=== PATIENT | male | born 1950 | race Hispanic/Latino ===

== ENCOUNTER 2017-01-24 08:48 | Day surgery (SDC) | payer MEDICARE ==
--- NOTE | 2017-01-24 10:02 | Anesthesia Consultation ---
Anesthesia Consult and Med Hx Date of service: 01/24/17 - Airway Anesthetic Teeth Evaluation: Good, Crowns ROM Head & Neck: Adequate Mental/Hyoid Distance: Adequate Mallampati Class: Class III Intubation Access Assessment: Possibly Difficult - Pre-Operative Health Status ASA Pre-Surgery Classification: ASA2 - Pulmonary Hx Smoking: Yes (STOPPED , 1 PPD X 30 YRS) Hx Pneumonia: Yes (06/2016 , RESOLVED) Hx Sleep Apnea: No (RAISA PRE SCREEN HIGH RISK) - Cardiovascular System Hx Hypertension: No (BP on admission 172/104) - Endocrine Hx Non-Insulin Dependent Diabetes: Yes - Other Systems Hx Cancer: No
--- NOTE | 2017-01-24 10:03 | Anesthesia Day of Surgery ---
Anesthesia Day of Surgery - Day of Surgery Patient Examined: Yes Patient H&P Reviewed: Yes Patient is NPO: Yes
[2017-01-24] MEDS ORDERED: DIPRIVAN 10 MG/ML IV ONE (10:57)
[2017-01-24] MEDS ORDERED: XYLOCAINE MPF 2% ONE (10:57)
[2017-01-24] MEDS ORDERED: DILAUDID ONE (10:57)
[2017-01-24] MEDS ORDERED: VERSED IV NR (11:00)
[2017-01-24] MEDS ORDERED: PEPCID IV NR (11:00)
[2017-01-24] MEDS ORDERED: NACL 0.9% 1000 ML 1,000 ML IV SCH (11:00)
[2017-01-24] MEDS ORDERED: ANCEF/STERILE WATER 2 GM/20 ML IV NR (12:00)
[2017-01-24] MEDS ORDERED: OMNIPAQUE 300 MG/50 ML (CATH LAB) IV ONE (12:01)
[2017-01-24] MEDS ORDERED: WATER FOR IRRIG STERILE IR ONE ×2 (12:02)
[2017-01-24] MEDS ORDERED: DECADRON ONE (12:02)
[2017-01-24] MEDS ORDERED: ZOFRAN ONE (12:02)
[2017-01-24] MEDS ORDERED: XYLOCAINE 2% UROJET ONE (12:24)
[2017-01-24] MEDS ORDERED: PROAIR IH ONE (12:31)
[2017-01-24] MEDS ORDERED: LASIX ONE (12:32)
[2017-01-24] MEDS ORDERED: PROVENTIL IH ONE (12:51)
--- NOTE | 2017-01-24 13:01 | Post Operative Note ---
Date of procedure: 01/24/17 Pre-op diagnosis: huge R distal stone Post-op diagnosis: same Findings: as above severe R hydro Procedure: cysto rpgs stone transpostion j randall Anesthesia: GETA Surgeon: KANE AGUILAR Estimated blood loss: none Pathology: none Condition: stable Disposition: PACU
--- NOTE | 2017-01-24 13:03 | Discharge Summary ---
Short Stay Discharge Plan Activity: other (no straining ) Weight Bearing Status: Full Weight Bearing Diet: regular, low fat, low salt Special Instructions: other (inc fluids ) Durable Medical Equipment Needed Upon Discharge: other (home with patterson and stent ) Follow up with: EMERITA SPRING MD [Primary Care Provider] - 7 Days KANE AGUILAR MD [Staff Physician] - 3 Days Forms: Outpatient Surgery DC Inst.
[2017-01-24] MEDS: DILAUDID IV PRN ×2 (13:08→13:20)
--- NOTE | 2017-01-24 13:35 | Operative Report ---
PREOPERATIVE DIAGNOSES: Large 1 cm distal right ureteral stone with severe hydronephrosis, azotemia. POSTOPERATIVE DIAGNOSES: Large 1 cm distal right ureteral stone with severe hydronephrosis, azotemia. PROCEDURE: Cystoscopy, retrograde, right ureteral stone transposition, double-J stent. SURGEON: Jarett Preston MD ANESTHESIA: General. FINDINGS: This is a gentleman with no pain, but has a large distal right ureteral stone with severe hydronephrosis and azotemia. All the options were discussed. He may need a percutaneous nephrostomy. He now presents for treatment. DESCRIPTION OF PROCEDURE: The patient was brought to the operating room and placed on the operating table. Following the induction of general anesthesia, placed in lithotomy position, prepped and draped in usual sterile fashion. Cystourethroscopy showed an elevated bladder neck and enlarged prostate. Once we got in the bladder, retrograde showed a large stone in the distal ureter just at the pelvic brim. The right side was unremarkable. Using an open-ended catheter and some Xylocaine gel diluted, we were able to manipulate the stone up into the kidney, it took some time and under fluoroscopic guidance. At this point, he had moderate hydronephrosis. His creatinine is 3. We placed a 7-[place] 28 cm J stent as 26 was not available, coiled in the bladder and kidney. A Wilson was placed. We thinking of doing a lithotripsy, but with creatinine and possible mild inflammatory changes, we decided to not do lithotripsy, he is going to need multiple procedures in a staged fashion, which will include follow up lithotripsy, laser, or even possible percutaneous nephrostomy. We will let the kidney decompress and follow up in a staged procedure as discussed with him and his preoperatively and his postoperatively. He was brought to recovery in stable condition. JOB# [id number] [facility]
[2017-01-24 15:52] VITALS: BP 136/91
--- NOTE | 2017-01-25 09:36 | Fluoroscopy Report ---
Retrograde pyelogram: Right ureteral calculus. The initial images demonstrates an opacity over the right SI joint. Injection of contrast demonstrates obstruction to the ureter consistent with the opacification at the mid SI joint. Additional imaging demonstrates ureteral and renal dilatation above this location. On the final image it would appear that the calculus has been dislodged and there is a right nephroureteral stent present.
== END 2017-01-24 14:46 | disposition home or self-care (01) ==
LOC: OR 08:48
PROVIDERS: ATTEND Urology
DX: N13.2 Hydronephrosis with renal and ureteral calculous obstruction (principal); R79.89 Other specified abnormal findings of blood chemistry; E11.9 Type 2 diabetes mellitus without complications; Z79.899 Other long term (current) drug therapy; Z88.6 Allergy status to analgesic agent; Z87.891 Personal history of nicotine dependence; Z98.890 Other specified postprocedural states
CPT/HCPCS: 52330; 74420 ×2; 82962 ×2; A4217; C1758; C1769; C2617; J0690; J1100; J1170; J1940; J2250; J2405; J2704; J7030; Q9967

== ENCOUNTER 2017-02-14 10:53 | Day surgery (SDC) | payer MEDICARE ==
[~2017-02-14 10:53] MED LIST: ANCEF/STERILE WATER 2 GM/20 ML 2 GM/20 ML SYRINGE IV NR
--- NOTE | 2017-02-14 12:20 | Anesthesia Day of Surgery ---
Anesthesia Day of Surgery - Day of Surgery Patient Examined: Yes Patient H&P Reviewed: Yes Patient is NPO: Yes
--- NOTE | 2017-02-14 12:20 | Anesthesia Consultation ---
Anesthesia Consult and Med Hx Date of service: 02/14/17 - Airway Anesthetic Teeth Evaluation: Good ROM Head & Neck: Adequate Mental/Hyoid Distance: Adequate Mallampati Class: Class III Intubation Access Assessment: Possibly Difficult - Pre-Operative Health Status ASA Pre-Surgery Classification: ASA2 - Pulmonary Hx Smoking: Yes (STOPPED 2014 , 1 PPD X 30 YRS) Hx Pneumonia: Yes (06/2016 , RESOLVED) Hx Sleep Apnea: No (RAISA PRE SCREEN HIGH RISK) - Cardiovascular System Hx Hypertension: No (RECENT HBP- NOT DX YET) - Endocrine Hx Renal Disease: Yes (kidney stones) Hx Non-Insulin Dependent Diabetes: Yes - Other Systems Hx Cancer: No Hx Obesity: Yes (BMI 32.5)
[2017-02-14] MEDS ORDERED: NACL 0.9% 1000 ML 1,000 ML IV SCH (13:00)
[2017-02-14] MEDS ORDERED: PEPCID IV NR (13:00)
[2017-02-14] MEDS ORDERED: VERSED IV NR (13:00)
[2017-02-14] MEDS ORDERED: SUBLIMAZE ONE (14:21)
[2017-02-14] MEDS ORDERED: DIPRIVAN 10 MG/ML IV ONE (14:22)
[2017-02-14] MEDS ORDERED: XYLOCAINE MPF 2% ONE (14:23)
--- NOTE | 2017-02-14 14:48 | Post Operative Note ---
Date of procedure: 02/14/17 Pre-op diagnosis: r ureteral stone Post-op diagnosis: same Findings: as above Procedure: r eswl Anesthesia: GREGORY Surgeon: KANE AGUILAR Estimated blood loss: none Pathology: none Condition: stable Disposition: PACU
--- NOTE | 2017-02-14 14:49 | Discharge Summary ---
Short Stay Discharge Plan Activity: other (no straining ) Weight Bearing Status: Full Weight Bearing Diet: low fat, low cholesterol, low salt Special Instructions: other (inc fluids ) Follow up with: EMERITA SPRING MD [Primary Care Provider] - 7 Days KANE AGUILAR MD [Staff Physician] - 7 Days
--- NOTE | 2017-02-14 15:06 | Operative Report ---
PREOPERATIVE DIAGNOSIS: Large ureteral stone that was pushed up into his kidney on the right side. POSTOPERATIVE DIAGNOSES: Large ureteral stone that was pushed up into his kidney on the right side. PROCEDURE: Right ESWL. SURGEON: Jarett Preston M.D. ANESTHESIA: General. FINDINGS: This is a gentleman who presented with severe pain, large stone was in his ureter pushed up in the kidney around the loop of the double-J, now presents for lithotripsy. DESCRIPTION OF PROCEDURE: The patient brought to the operating room and placed on the operating table. Following induction of anesthesia, placed in supine position. Stone was well localized within the double-J stent. Shocks were begun at 1 kV and a renal pause was carried out and increased to maximum of 6 kV. A total of 2500 shocks were given. The patient tolerated the procedure well. No significant complication. The stone appeared to be spread out. He will need a staged procedure, likely will need ureteroscopy or may even need a percutaneous nephrostomy or second lithotripsy, brought to recovery in stable condition. JOB# [id number] [facility]
--- NOTE | 2017-02-14 15:08 | Post Anesthesia Evaluation ---
- Post Anesthesia Evaluation Patient Participated: Yes Airway Patent: Yes Stable Respiratory Function: Yes Nausea/Vomiting: No Temp > 96.8F: Yes Pain Manageable: Yes Adequeate Hydration: Yes Anesthesia Complications: No
[2017-02-14 15:49] VITALS: BP 142/81
[2017-02-14] MEDS ORDERED: PERCOCET 5/325 PO PRN (16:00)
== END 2017-02-14 10:54 | disposition home or self-care (01) ==
LOC: OR 10:53
PROVIDERS: ATTEND Urology
DX: N20.0 Calculus of kidney (principal); I10 Essential (primary) hypertension; E11.9 Type 2 diabetes mellitus without complications; E66.9 Obesity, unspecified; Z68.32 Body mass index [BMI] 32.0-32.9, adult; Z98.890 Other specified postprocedural states; Z88.6 Allergy status to analgesic agent; Z79.84 Long term (current) use of oral hypoglycemic drugs; Z87.891 Personal history of nicotine dependence; Z79.899 Other long term (current) drug therapy
CPT/HCPCS: 50590; 82962; J0690; J2250; J2704; J3010; J7030

== ENCOUNTER 2017-03-14 07:59 | Day surgery (SDC) | payer MEDICARE ==
[2017-03-14] MEDS ORDERED: NACL BACTERIOSTATIC INFILTRATI ONE (09:01)
[2017-03-14] MEDS ORDERED: DILAUDID ONE (09:43)
[2017-03-14] MEDS ORDERED: DIPRIVAN 10 MG/ML IV ONE (09:43)
[2017-03-14] MEDS ORDERED: XYLOCAINE MPF 2% ONE (10:17)
[2017-03-14] MEDS ORDERED: VERSED ONE (10:18)
[2017-03-14] MEDS ORDERED: PEPCID IV ONE (10:19)
--- NOTE | 2017-03-14 10:26 | Anesthesia Day of Surgery ---
Anesthesia Day of Surgery - Day of Surgery Patient Examined: Yes Patient H&P Reviewed: Yes Patient is NPO: Yes
--- NOTE | 2017-03-14 10:26 | Anesthesia Consultation ---
Anesthesia Consult and Med Hx Date of service: 03/14/17 - Airway Anesthetic Teeth Evaluation: Bridges ROM Head & Neck: Adequate Mental/Hyoid Distance: Adequate Mallampati Class: Class II Intubation Access Assessment: Good - Pulmonary Exam CTA: Yes - Cardiac Exam Cardiac Exam: No Murmur - Pre-Operative Health Status ASA Pre-Surgery Classification: ASA2 Proposed Anesthetic Plan: General - Pulmonary Hx Smoking: No Hx Pneumonia: Yes (06/2016 , RESOLVED) Hx Sleep Apnea: No (RAISA PRE SCREEN LOW RISK) - Cardiovascular System Hx Hypertension: No - Endocrine Hx Renal Disease: Yes (kidney stones) Hx Non-Insulin Dependent Diabetes: Yes - Other Systems Hx Cancer: No Hx Obesity: Yes (BMI 32.5)
[2017-03-14] MEDS ORDERED: ZOFRAN ONE (10:38)
[2017-03-14] MEDS ORDERED: DECADRON ONE (10:38)
[2017-03-14] MEDS ORDERED: TORADOL ONE (10:46)
[2017-03-14] MEDS ORDERED: VERSED IV NR (11:00)
[2017-03-14] MEDS ORDERED: PEPCID IV NR (11:00)
[2017-03-14] MEDS ORDERED: ANCEF/STERILE WATER 2 GM/20 ML IV NR (11:00)
[2017-03-14] MEDS ORDERED: NACL 0.9% 1000 ML 1,000 ML IV SCH (11:00)
--- NOTE | 2017-03-14 11:05 | Short Stay Summary ---
Short Stay Documentation Date of service: 03/14/17 - History H&P: obtained from office - Allergies and Medications Current Medications: Allergies aspirin Allergy (Verified 01/24/17 10:12) Anaphylaxis Home Medications Medication Instructions Recorded Confirmed Last Taken Type Metformin HCl [Glucophage] 1,000 mg PO BID 01/23/17 03/14/17 03/13/17 History Niacin [Niaspan] 500 mg PO QHS 01/23/17 03/14/17 02/12/17 20:00 History Multivitamin [Multiple Vitamins] 1 each PO DAILY 03/14/17 03/14/17 03/13/17 History [place]-3 Fatty Acids/Fish Oil [Fish 1 each PO DAILY 03/14/17 03/14/17 03/13/17 History Oil] Psyllium Husk [Psyllium] 0.4 gm PO DAILY 03/14/17 03/14/17 03/13/17 History Active Medications Cefazolin Sodium (Ancef/Sterile Water 2 Gm/20 Ml) 2 gm IV PREOP NR Stop: 03/14/17 11:30 Sodium Chloride (Nacl 0.9% 1000 Ml) 1,000 mls @ 75 mls/hr IV DIRECT [place] Last Admin: 03/14/17 10:21 Dose: 75 mls/hr Midazolam HCl (Versed) 2 mg IV PREOP NR Stop: 03/14/17 23:59 Last Admin: 03/14/17 10:22 Dose: 2 mg - Brief post op/procedure progress note Date of procedure: 03/14/17 Pre-op diagnosis: rt renal stones Post-op diagnosis: same Procedure: eswl---staged Anesthesia: GETA Surgeon: CHRISTIANO LUBIN Estimated blood loss: none Condition: stable - Hospital course Hospital course: percocet & post op info on chart - Disposition Condition at discharge: Stable Disposition: DC-01 TO HOME OR SELFCARE Short Stay Discharge Plan Follow up with: EMERITA SPRING MD [Primary Care Provider] - 7 Days
--- NOTE | 2017-03-14 11:26 | Operative Report ---
PREOPERATIVE DIAGNOSIS: Right renal calculi, status post stent placement. POSTOPERATIVE DIAGNOSIS: Right renal calculi, status post stent placement. PROCEDURE: Extracorporal shock wave lithotripsy (stage procedure). SURGEON: Sina Begum MD ANESTHESIA: General. ESTIMATED BLOOD LOSS: Minimal. FLUIDS: Crystalloid. COMPLICATIONS: No complications. INDICATIONS: This patient is a 67-year-old gentleman seen by Dr. Preston in the office. He has right renal stone. He underwent cysto stent, lithotripsy last month with Dr. Preston. He presents today for second stage lithotripsy. DESCRIPTION OF PROCEDURE: The patient was taken to the operative suite, placed in a supine position. After adequate general anesthesia, had several fragments in the kidney. Double-J stent was in good position. Largest fragment was approximately 6 mm. Extracorporal shock wave lithotripsy was administered with a maximum kV of 5, 2500 shocks. Renal pause after 200 shocks was performed. He had approximately 4 fragments total. As I said the largest in the renal pelvis was mm and then some small satellite fragments. 1500 shocks was administered to the larger fragment and was distributed amongst the other 3 with adequate fragmentation. The patient tolerated the procedure well. He was extubated and taken to recovery room. He will go home on Percocet and follow up in the office with Dr. Preston. JOB# [id number] [facility]
--- NOTE | 2017-03-14 15:26 | Post Anesthesia Evaluation ---
- Post Anesthesia Evaluation Patient Participated: Yes Airway Patent: Yes Stable Respiratory Function: Yes Nausea/Vomiting: No Temp > 96.8F: Yes Pain Manageable: Yes Adequeate Hydration: Yes Anesthesia Complications: No Block Receding Appropriately: Not Applicable Patient on Ventilator: No
[2017-03-14 20:49] VITALS: BP 153/94
== END 2017-03-14 13:36 | disposition home or self-care (01) ==
LOC: OR 07:59
PROVIDERS: ATTEND Urology
DX: N20.0 Calculus of kidney (principal); E11.9 Type 2 diabetes mellitus without complications; E66.9 Obesity, unspecified; Z68.32 Body mass index [BMI] 32.0-32.9, adult; Z79.84 Long term (current) use of oral hypoglycemic drugs; Z96.0 Presence of urogenital implants; Z88.6 Allergy status to analgesic agent
CPT/HCPCS: 50590; 82962; J0690; J1100; J1170; J2250; J2405; J2704; J7030; J1885